=== PATIENT | female | born 1940 | race Caucasian/White ===

== ENCOUNTER 2019-12-30 11:00 | Outpatient (RCR) | payer MEDICARE, SELFPAY ==
--- NOTE | 2019-11-02 11:40 | PTOPEVAL ---
INITIAL PHYSICAL THERAPY EVALUATION and PLAN OF CARE Thank you for referring Amalia to [facility]. Please review, sign, date and return this plan of care TABITHA. She will be seen in PT 2x/wk x 4 wks for strengthening, balance activities, and fall prevention strategies. I agree with and certify that the following plan of care is medically necessary. Referring Physician Date Admitting Provider: Attending Provider: Nestor Medellin, Referring Provider: *PT Outpatient Evaluation Start: 11/02/19 10:13 Freq: Status: Active Protocol: Document 11/02/19 10:13 HAL (Rec: 11/02/19 11:25 HAL [email or web address]) Therapy Assessment Status Assessment Status Assessment Status Evaluation Outpatient Past Medical History Neurological History Hx Neurological Disorders No Significant History Cardiovascular History Hx Cardiac Disorders No Significant History Respiratory History Hx Respiratory Disorders No Significant History Gastrointestinal History Hx Gastrointestinal Disorders No Significant History Genitourinary History Hx Bladder Surgery Yes Musculoskeletal History Hx Arthritis Yes Hx Fractures Yes: R humeral Hx Other Musculoskeletal Disorders Yes: increase history of falls Endocrine History Hx Diabetes Yes: type 2 Hx Hypothyroidism Yes HEENT History Hx Macular Degeneration Yes Integumentary History Hx Skin Disorders No Significant History Reproductive History Hx Hysterectomy Yes Hx Mastectomy Yes: R - also had chemo Other History Hx Cancer Yes: R breast Hx Chemotherapy Yes Evaluation Information Problem Diagnosis muscle weakness, balance/ strenghtening all 4 extremities, fall prevention Onset 2 falls within last few months Subjective Information 1st fall recently - dog pulled Query Text:As Reported By Patient/ her - snow on ground - went Family down. Unsure what happened with 2nd fall - but knew she needed to get back into therapy. 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 Hasn't gone back to walking on treadmill yet. Knew she wanted to return to PT when she was here in Jun/ Jul when episode of care was interrupted with family
--- NOTE | 2019-11-09 13:40 | PCPTNOTE ---
Patient called & cancelled scheduled appointment this date due to snowy weather. [ ]
--- NOTE | 2019-11-30 16:03 | PTOPEVAL ---
PHYSICAL THERAPY RE-EVALUATION and UPDATED PLAN OF CARE Thank you for referring Amalia to [facility]. She has been seen for 5 visits and all of her goals were not met. She is recommended to continue with PT 2x/wk x 4 wks. Please review, sign, date and return this updated plan of care TABITHA. I agree with and certify that the following plan of care is medically necessary. Referring Physician Date Admitting Provider: Attending Provider: Nestor Medellin, Referring Provider: *PT Outpatient Evaluation Start: 11/02/19 10:13 Freq: Status: Active Protocol: Document 11/30/19 12:35 HAL (Rec: 11/30/19 16:02 HAL [email or web address]) Therapy Assessment Status Assessment Status Assessment Status Re-evaluation Evaluation Information Problem Subjective Information Amalia reports feeling less Query Text:As Reported By Patient/ steady on the stairs since she Family was unable to come to PT as much over the holidays. She reports 0 falls. Pain Assessment Timing of Pain Assessment Timing of Pain Assessment Assessment Self Report Self Report Pain Level 0 Pain Score Pain Score 0: Self Report Lower Extremity Muscle Strength Testing General Lower Extremity Strength Gross Lower Extremity Strength hips testing in sidelying - 3/ 5 for hip abduction Balance Assessment Childs Balance Assessment Sitting to Standing Independent w/out Hands Unsupported Stance Ability Safely- 2 minutes Sitting Unsupported, Feet on Floor Safely- 2 minutes Standing to Sitting Safely, Minimal Hand Use Transfer Ability Safely, Minimal Hand Use Unsupported Stance- Eyes Closed Safely, 10 seconds Unsupported Stance- Feet Together Independent, 1 minute Reaching Forward while Standing Confidently, 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 Floor Independent/Safe Look Behind Shoulder - Standing Shifts Weight Well Turning 360 Degrees Turns Bilateral, < 4 secs Unsupported Stance, Alternating Feet on 4 Steps w/Supervision Stair Unsupported Tandem Stance Small Step- 30 seconds Unilateral Leg Stance Lifts Leg/Unable to Hold CHILDS Balance Evaluation Total Score (/56 49 points) 5 Time Sit to Stand Time in Seconds 19.75 5 Time Sit to Stand Comments did not use hands entire time, Query Text:Normative Data: If Greater mild quick sit down decreased Than 15 Seconds, 74% Increase Risk for control at rep #3 Recurrent Falls Gait Assessment Gait Pattern Assessment Other Gait Observations more narrow of base support - normal width, increase with L trunk lead - but trunk leans to L in static standing,
--- NOTE | 2019-12-14 11:27 | PCPTNOTE ---
Patient called & cancelled scheduled appointment this date due to illness.
--- NOTE | 2019-12-16 08:14 | PCPTNOTE ---
Patient called & cancelled scheduled appointment this date due to her eye situation - ? conflicting appointments. [ ]
--- NOTE | 2019-12-18 09:04 | PCPTNOTE ---
Patient called & cancelled scheduled appointment this date due to no reason given.[ ]
--- NOTE | 2019-12-23 08:31 | PCPTNOTE ---
Patient called & cancelled scheduled appointment this date due to -reason given, auto rebuilder was unclear of what pt stated on voice mail. Mar did state that she would attend 12/28/2019 appointment.
--- NOTE | 2019-12-30 12:51 | PTOPEVAL ---
PHYSICAL THERAPY DISCHARGE SUMMARY Thank you for referring Amalia to [facility]. She was seen for re-evaluation this date and she has met all goals set. She is ready for d/c from PT to HEP. I agree with Amalia's discharge from physical therapy. Referring Physician Date Admitting Provider: Attending Provider: Nestor Medellin, Referring Provider: *PT Outpatient Evaluation Start: 11/02/19 10:13 Freq: Status: Active Protocol: Document 12/30/19 11:10 HAL (Rec: 12/30/19 12:47 HAL [email or web address]) Therapy Assessment Status Assessment Status Assessment Status Discharge Evaluation Information Problem Subjective Information Amalia states that she hasn't Query Text:As Reported By Patient/ has any falls. She continues Family to perform hip exercises with theraband at home. Pain Assessment Timing of Pain Assessment Timing of Pain Assessment Assessment Self Report Self Report Pain Level 0 Pain Score Pain Score 0: Self Report Lower Extremity Muscle Strength Testing Hip Strength Bilateral Hip Flexion Strength 4+ Good + Hip Extension Strength 4 Good Hip Medial Rotation Strength 4+ Good + Hip Lateral Rotation Strength 4+ Good + Hip Strength Comments R hip abduction 3+ L hip abduction 3 Balance Assessment Childs Balance Assessment Sitting to Standing Independent w/out Hands Unsupported Stance Ability Safely- 2 minutes Sitting Unsupported, Feet on Floor Safely- 2 minutes Standing to Sitting Safely, Minimal Hand Use Transfer Ability Safely, Minimal Hand Use Unsupported Stance- Eyes Closed Safely, 10 seconds Unsupported Stance- Feet Together Independent, 1 minute Reaching Forward while Standing Confidently, 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 Independent/Safe Look Behind Shoulder - Standing Shifts Weight Well Turning 360 Degrees Turns Bilateral, < 4 secs Unsupported Stance, Alternating Feet on (I)- 8 Steps in 20 secs Stair Unsupported Tandem Stance Achieves Tandem Unilateral Leg Stance Lifts Leg/Unable to Hold CHILDS Balance Evaluation Total Score (/56 53 points) 5 Time Sit to Stand Time in Seconds 16.63 5 Time Sit to Stand Comments did not use hands entire time Query Text:Normative Data: If Greater Than 15 Seconds, 74% Increase Risk for Recurrent Falls Gait Assessment Gait Pattern Assessment Other Gait Observations increased trunk lean still present - mainly to left - but overall decreased from initial eval. increase in step length, improved he
== END 2019-12-31 09:07 | disposition home or self-care (01) ==
LOC: ANHHIPT 11:00
PROVIDERS: PCP Internal Medicine; Visit Provider Internal Medicine
DX: M62.81 Muscle weakness (generalized) (principal); R26.81 Unsteadiness on feet; Z91.81 History of falling
CPT/HCPCS: 97110; 97162

== ENCOUNTER 2020-08-19 11:00 | Outpatient (RCR) | payer MEDICARE, SELFPAY ==
[2020-07-25 10:35] VITALS: BP_SYST 120
--- NOTE | 2020-07-25 12:06 | PTOPEVAL ---
INITIAL PHYSICAL THERAPY EVALUATION and PLAN OF CARE Thank you for referring Amalia Buckner to [facility].? Amalia is scheduled to be seen for physical therapy? 2x/week for 4 weeks. Please review, sign, date and return this plan of care TABITHA. I think Amalia may have a L rotator cuff tear resulting in her difficulty with raising her L arm. I agree with and certify that the following plan of care is medically necessary. Referring Physician Date Admitting Provider: Attending Provider: Nestor Medellin, Referring Provider: *PT Outpatient Evaluation Start: 07/25/20 10:37 Freq: Status: Active Protocol: Document 07/25/20 10:35 HAL (Rec: 07/25/20 11:54 HAL [email or web address]) Therapy Assessment Status Assessment Status Assessment Status Evaluation Evaluation Information Problem Diagnosis decreased motion L shoulder Onset ~ 6 wks ago Subjective Information woke up with neck pain - Query Text:As Reported By Patient/ pinched nerve - stayed in neck Family /shoulder - went to chiropractor - felt better - but then difficulty moving L shoulder - unable to lift arm overhead - but no pain. Sleeping - sleep well, no problems in mornings. Does leg exercises - ready to go. Diagnostic Tests X-Rays For This Problem Yes Prior Level of Function Activity Level (Last 3 Months) Occupation retired Hand Dominance Left Medications Home Meds (Include: OTC, RX, Vitamins, forgot list - went from memory Herbals, Dose, Route,and Frequency) - synthryoid, eye shots every Query Text:Home Med Entries Will No 6 wks, Metformin, lasix, HCTZ Longer Recall From Past Visits. Home , Vit D, women's multivitamin, Meds Must Be Re-entered With Each Visit. potassium, bj vision, leutine Home Setting Home Type House,Multiple Levels Environmental Barriers Stairs, Greater than 4 Living Situation With Spouse Mobility Assistive Devices (Used Last 3 None Months) Pain Assessment Timing of Pain Assessment Timing of Pain Assessment Assessment Self Report Self Report Pain Level 0 Pain Score Pain Score 0: Self Report Upper Extremity Range of Motion Scapular/ Shoulder Range of Motion Left Shoulder Flexion - Active 30 Shoulder Flexion - Passive 136 Shoulder Extension - Active 52 Shoulder Abduction - Active 30 Shoulder Abduction - Passive 120 Shoulder Medial Rotation - Passive 90 Shoulder Medial Rotation - Active T9 Query Text:Reach Behind the Back Shoulder Lateral Rotation - Passive 85
--- NOTE | 2020-07-29 08:44 | PCPTNOTE ---
Patient called & cancelled scheduled appointment this date.
[2020-08-19 11:12] VITALS: BP_SYST 130
--- NOTE | 2020-08-19 11:45 | PTOPEVAL ---
PHYSICAL THERAPY DISCHARGE SUMMARY Thank you for referring Amalia Buckner to [facility].? Mar has been seen in PT x 5 visits. It appears that she may have L rotator cuff dysfunction - most likely full tear of supraspinatus. However, she continues to remain pain free and functional with her ADLs, IADLs. She is to continue with HEP - especially the reciprocal pulleys. I agree with Mar's discharge from PT. Referring Physician Date Admitting Provider: Attending Provider: Nestor Medellin, Referring Provider: *PT Outpatient Evaluation Start: 07/25/20 10:37 Freq: Status: Active Protocol: Document 08/19/20 11:12 HAL (Rec: 08/19/20 11:45 HAL [email or web address]) Therapy Assessment Status Assessment Status Assessment Status Discharge Evaluation Information Problem Subjective Information Mar reports that she finally Query Text:As Reported By Patient/ received her pulleys - was Family having some difficulty with them but realized she was standing rather sitting down. Still no pain with L shoulder - able to perform usual ADLs, IADLs. Pain Assessment Timing of Pain Assessment Timing of Pain Assessment Assessment Self Report Self Report Pain Level 0 Pain Score Pain Score 0: Self Report Upper Extremity Range of Motion Scapular/ Shoulder Range of Motion Left Shoulder Flexion - Active 45 Shoulder Flexion - Passive 142 Shoulder Extension - Active 60 Shoulder Abduction - Active 35 Shoulder Abduction - Passive 130 Shoulder Medial Rotation - Passive 90 Shoulder Medial Rotation - Active T9 Query Text:Reach Behind the Back Shoulder Lateral Rotation - Passive 85 Shoulder Lateral Rotation - Active unable to perform without help Query Text:Reach Behind the Head Scapular/Shoulder Range of Motion ER in neutral - 52 active 76 Comments passive Upper Extremity Muscle Strength Testing Scapular/Shoulder Left Shoulder Flexion Strength 2 Poor Shoulder Extension Strength 5 Normal Shoulder Abduction Strength 2 Poor Shoulder Medial Rotation Strength 5 Normal Shoulder Lateral Rotation Strength 2 Poor Shoulder Strength Comments with isometric testing - able to elicit deltoid for flexion, abduction, and extension General Exercise General Exercises Side Left,Bilateral Exercise Location shoulder, scapula Exercise Type Active,Active/Assistive, Isometric,Resistive Exercise Description overhead reciprocal pulleys - Query Text:Record Sets, Reps, flexion, abduction - 20 reps Resistanc
== END 2020-08-19 12:12 | disposition home or self-care (01) ==
LOC: ANHHIPT 11:00
PROVIDERS: PCP Internal Medicine; Visit Provider Internal Medicine
DX: R29.898 Other symptoms and signs involving the musculoskeletal system (principal)
CPT/HCPCS: 97110; 97161